=== PATIENT | male | born 1985 | race Caucasian/White ===

== ENCOUNTER 2021-02-05 16:09 | Emergency (ER) | payer BC ==
[~2021-02-05] VITALS: Ht 185.4 cm; Wt 122.4 kg
--- NOTE | 2021-02-05 18:55 | NUR ---
PATIENT VITALS RECHECKED @ 1996
[2021-02-05 19:13] LABS: BASOPHILS % (AUTO) 1 % (0-1); EOSINOPHILS % (AUTO) 1 % (1-7); LYMPHOCYTES % (AUTO) 11 % (22-44); MEAN CORPUSCULAR HEMOGLOBIN 31.7 pg (27.5-34.5); MEAN CORPUSCULAR HGB CONC 34.1 g/dL (33.2-36.2); MEAN PLATELET VOLUME 8.5 fL (7.4-10.4); MONOCYTES % (AUTO) 10 % (2-9); NEUTROPHILS % (AUTO) 78 % (42-75); PLATELET COUNT 289 x10^3/uL (130-400); RED BLOOD COUNT 5.35 x10^6/uL (4.38-5.82); RED CELL DISTRIBUTION WIDTH 12.9 % (9.4-14.8)
[2021-02-05 19:25] LABS: ALANINE AMINOTRANSFERASE 36 U/L (12-78); ALBUMIN 3.9 g/dL (3.4-5.0); ANION GAP 4 mmol/L (5-15); CHLORIDE 109 mmol/L (98-107); CREATININE 1.01 mg/dL (0.7-1.3)
[2021-02-05 19:27] LABS: ALKALINE PHOSPHATASE 97 U/L (45-117); BILIRUBIN,TOTAL 0.7 mg/dL (0.2-1.0); TOTAL PROTEIN 8.2 g/dL (6.4-8.2)
--- NOTE | 2021-02-05 20:30 | NUR ---
PT TO ROOM AT THIS TIME.
[2021-02-05 20:47] VITALS: BP 135/72
[2021-02-05] MEDS ORDERED: CEFTRIAXONE 1,000 MG ONE (20:56)
[2021-02-05] MEDS ORDERED: CEFTRIAXONE 1,000 MG IM ONE (21:00)
--- NOTE | 2021-02-05 21:03 | NUR ---
REPORT TO KRISTI RAYA.
== END 2021-02-05 21:38 | disposition home or self-care (01) ==
LOC: ED 20:35
DX: I80.01 Phlebitis and thrombophlebitis of superficial vessels of right lower extremity (principal); L03.115 Cellulitis of right lower limb; F17.200 Nicotine dependence, unspecified, uncomplicated
CPT/HCPCS: 36415; 80053; 85025; 93971; 96372; 99284; J0696